=== PATIENT | female | born 1970 | race Caucasian/White ===

== ENCOUNTER 2025-08-27 18:48 | Emergency (ER) | payer SELFPAY ==
[~2025-08-27] VITALS: Ht 160 cm; Wt 60.0 kg
[2025-08-27 19:09] VITALS: O2SAT 98
[2025-08-27 20:50] LABS: BASOPHILS % 0.9 % (0.0-2.0); EOSINOPHILS % 1.6 % (0.0-5.0); HEMATOCRIT. 41.5 % (36.0-48.0); HEMOGLOBIN. 13.5 g/dL (12.0-16.0); LYMPHOCYTES % 46.6 % (20.0-50.0); MEAN PLATELET VOLUME 9.5 fl (7.4-10.4); MONOCYTES % 7.3 % (2.0-8.0); NEUTROPHILS % 43.6 % (40.0-76.0); PLATELET 264 x1000/uL (130-400); RED BLOOD CELL COUNT 4.49 mill/uL (4.2-5.4); RED CELL DISTRIBUTION WIDTH 14.5 % (11.6-14.6)
[2025-08-27 21:08] LABS: CREATININE 0.7 mg/dL (0.6-1.0); UREA NITROGEN BLOOD 12 mg/dL (9-23)
[2025-08-27 21:09] LABS: PROTEIN TOTAL 7.5 g/dL (6.0-8.3)
[2025-08-27 21:10] LABS: ASPARTATE AMINOTRANSFERASE 21 IU/L (<34); BILIRUBIN TOTAL 0.4 mg/dL (0.1-1.0)
[2025-08-27] MEDS ORDERED: CARB15DR20 RIGHT EAR (22:17)
[2025-08-27 22:48] VITALS: BP 146/90; PULSE 80; RESP 16; TEMP 36.8; O2SAT 98
== END 2025-08-27 22:50 | disposition home or self-care (01) ==
LOC: ER 18:48
DX: H61.21 Impacted cerumen, right ear (principal); Z90.710 Acquired absence of both cervix and uterus; Z79.899 Other long term (current) drug therapy
CPT/HCPCS: 36415; 69209; 80053; 85025; 99283